=== PATIENT | female | born 1950 | race Caucasian/White ===

== ENCOUNTER 2017-11-21 12:18 | Day surgery (SDC) | payer OTHER, MEDICARE ==
[~2017-11-21] VITALS: Ht 152.4 cm; Wt 75.6 kg
[~2017-11-21 12:18] MED LIST: ALPRAZOLAM0.5 MG PO; BUDEPRION XL300 MG; BUSPAR15 MG PO; FIORICET 50-301 EACH PO; HYDROCHLOROTHIA25 MG PO; LISINOPRIL20 MG PO; METOPROLOL SUCC50 MG PO; NORVASC10 MG PO; PRAVACHOL40 MG PO; PROTONIX40 MG PO; SELFEMRA20 MG PO; SOMA350 MG PO
[2017-11-21 13:04] LABS: HEMATOCRIT 31.8 % (36.0-46.0); HEMOGLOBIN 10.8 G/DL (11.9-15.5); MCH 30.1 PG (29.0-34.0); MCV 88.6 FL (83-99); PLATELET COUNT 113 K/uL (156-360); RBC DIS.WIDTH-CV 12.9 % (11.8-14.6); RBC DIS.WIDTH-SD 42.2 % (39-53); RED BLOOD COUNT 3.59 M/uL (3.80-5.20)
[2017-11-21 13:12] LABS: CHLORIDE 105 mEq/L (99-109); POTASSIUM 3.3 mEq/L (3.7-5.4); SODIUM 141 mEq/L (136-147)
[2017-11-21 13:14] LABS: GLUCOSE 146 mg/dL (70-99)
[2017-11-21 13:18] LABS: CREATININE 0.7 mg/dL (0.6-1.3); GFR ESTIMATE (CALCULATED) > 59 mL/min/
[2017-11-21 13:19] LABS: UREA NITROGEN (BUN) 9 mg/dL (9-23)
[2017-11-21 13:25] LABS: TROP-I INTERPRETATION NEGATIVE; TROPONIN-I 0.07 ng/mL (0.0-0.30)
[2017-11-21 14:09] LABS: MAGNESIUM 2.1 mg/dL (1.3-2.7)
[2017-11-21 14:40] VITALS: BP 170/108
== END 2017-11-21 15:40 | disposition designated cancer center or children's hospital, planned readmission (85) ==
LOC: EME 12:18 → CATH 14:34 → EME 14:34 → CATH 15:40
PROVIDERS: Emergency Medicine
PROC: 02HK3JZ Insertion of Pacemaker Lead into Right Ventricle, Percutaneous Approach (ICD-10-PCS; principal; 2017-11-21)
PROC: B54BZZA Ultrasonography of Right Lower Extremity Veins, Guidance (ICD-10-PCS; principal; 2017-11-21)
PROC: B2141ZZ Fluoroscopy of Right Heart using Low Osmolar Contrast (ICD-10-PCS; principal; 2017-11-21)
DX: I44.2 Atrioventricular block, complete (principal); Z95.2 Presence of prosthetic heart valve; Z79.02 Long term (current) use of antithrombotics/antiplatelets; I10 Essential (primary) hypertension; E78.5 Hyperlipidemia, unspecified; K21.9 Gastro-esophageal reflux disease without esophagitis; F41.9 Anxiety disorder, unspecified; Z88.5 Allergy status to narcotic agent; Z87.891 Personal history of nicotine dependence
CPT/HCPCS: 71046; 80048; 83735; 84484; 85027; 93005; 99281; 99284; C1894; C1898; J0461; J1265; J2060; J2250; J3010